=== PATIENT | female | born 1955 | race Caucasian/White ===

== ENCOUNTER → 2016-05-06 | Outpatient (CLI) | payer OTHER ==
[~2016-05-06] MED LIST: ASMANEX220 MC1 INH; ASPIR 8181 MG PO; COREG 12.5MG12.5 MG PO; COZAAR100 MG PO; CRESTOR10 MG PO; FENOFIBRATE160 MG PO; NITROSTAT0.4 MG SL; NORVASC 5 MG TAB5 MG PO; PROAIR HFA8.5 GM INH; PROVENTIL HFA 61 INH INH; SINGULAIR10 MG PO; VITAMIN D1000 UNIT PO; ZANTAC 150 MG150 MG PO; ZOLOFT100 MG PO; ZYRTEC10 M3 PO
== END ==
LOC: RAD 12:16
DX: M54.5 Low back pain (principal); M47.816 Spondylosis without myelopathy or radiculopathy, lumbar region
CPT/HCPCS: 72100

== ENCOUNTER → 2020-03-20 | Outpatient (CLI) | payer MEDICARE, SELFPAY ==
[~2020-03-20] MED LIST changes: +AZITHROMYCIN250 MG PO
== END ==
LOC: RAD 16:54
DX: R05 Cough (principal)
CPT/HCPCS: 71046

== ENCOUNTER → 2020-05-14 | Outpatient (CLI) | payer MEDICARE, SELFPAY | LOC: ECHO 09:00 → NM 10:00 | DX: R07.9 Chest pain, unspecified (principal); R06.02 Shortness of breath; R00.2 Palpitations; I51.9 Heart disease, unspecified | CPT/HCPCS: ECHO; 78452; 93017; 93306; A9502; J2785 ==

== ENCOUNTER → 2020-12-31 | Outpatient (CLI) | payer MEDICARE ==
[2020-12-31 10:21] LABS: HEMOGLOBIN 11.9 gm/dl (12.3-15.3); RED BLOOD COUNT 4.37 M/UL (4.00-5.10); WHITE BLOOD COUNT 8.8 K/UL (4.5-11.0)
[2020-12-31 11:18] LABS: BUN/CREATININE RATIO 25 (0-10)
== END ==
LOC: LAB 09:34
PROVIDERS: Internal Medicine Cardiovascular Disease
DX: I10 Essential (primary) hypertension (principal)
CPT/HCPCS: 36415; 80053; 80061; 83735; 84439; 84443; 85025

== ENCOUNTER → 2021-01-01 | Outpatient (CLI) | payer MEDICARE | LOC: HEART 5 13:44 | DX: R00.2 Palpitations (principal) ==

== ENCOUNTER → 2021-02-05 | Outpatient (CLI) | payer MEDICARE | LOC: SLEEP 14:51 | DX: G47.33 Obstructive sleep apnea (adult) (pediatric) (principal) | CPT/HCPCS: 95810 ==

== ENCOUNTER 2021-07-29 12:40 | Emergency (ER) | payer MEDICARE ==
[2021-07-29] MEDS ORDERED: NAPROXEN500 MG PO (19:42)
[2021-07-29] MEDS ORDERED: NORFLEX 100 MG100 MG PO (19:42)
== END 2021-07-29 19:57 | disposition home or self-care (01) ==
LOC: ER1 12:40
DX: M54.50 Low back pain, unspecified (principal); E11.9 Type 2 diabetes mellitus without complications; I10 Essential (primary) hypertension
CPT/HCPCS: 72131; 96372; 99283; J1100; J1885